=== PATIENT | male | born 1990 | race Caucasian/White ===

== ENCOUNTER 2021-09-23 17:54 | Emergency (ER) | payer OTHER ==
[2021-09-23 20:01] LABS: BASOPHIL 0.6 % (0-2); EOSINOPHIL 0.5 % (0-5); HCT 43.1 % (42.0-52.0); LYMPHOCYTE 11.8 % (15-48); MCH 28.9 pg (25.0-31.0); MCHC 32.5 g/dL (32.0-36.0); MONOCYTE 9.5 % (0-12); MPV 9.1 fL (6.0-9.5); NEUTROPHIL 76.7 % (41-80); NRBC 0; PLT 348 K/uL (150-400); RBC 4.84 M/uL (4.70-6.00); WBC 14.8 K/uL (4.0-10.5)
[2021-09-23 20:27] LABS: ALBUMIN 3.5 g/dL (3.4-5.0); BILIRUBIN - TOTAL 0.2 mg/dL (0.2-1.0); BUN/CREAT RATIO (CALC) 17.2 RATIO; C-REACTIVE PROTEIN 2.5 mg/dL (<=0.90); CREATININE 0.64 mg/dL (0.67-1.17); GLOBULIN (CALCULATION) 4.9 g/dL; POTASSIUM 3.9 mmol/L (3.5-5.1); TOTAL PROTEIN 8.4 g/dL (6.4-8.2)
== END 2021-09-24 00:10 | disposition home or self-care (01) ==
LOC: FER 17:54
PROVIDERS: Emergency Medicine
DX: T81.40XA Infection following a procedure, unspecified, initial encounter (principal)
CPT/HCPCS: 36415; 73590; 80053; 85025; 86140; 87070; 87077; 87186; 87205; J0692; J3370; J7050